=== PATIENT | male | born 1970 | race Caucasian/White ===

== ENCOUNTER 2023-03-06 22:49 | Emergency (ER) | payer SELFPAY ==
[2023-03-06 22:50] VITALS: BP 157/89; PULSE 90; RESP 18; TEMP 36.7; O2SAT 94; BMI 23.0
--- NOTE | 2023-03-06 22:55 | XRR_ITS ---
PROCEDURE INFORMATION: Exam: XR Chest Exam date and time: 03/06/2023 11:19 PM Age: 52 years old Clinical indication: Condition or disease; Other: Pnuemonia; Additional info: Pneumonia TECHNIQUE: Imaging protocol: Radiologic exam of the chest. Views: 1 view. COMPARISON: No relevant prior studies available. FINDINGS: Lungs: Unremarkable. No consolidation. Pleural spaces: Unremarkable. No pleural effusion. No pneumothorax. Heart/Mediastinum: Unremarkable. No cardiomegaly. Bones/joints: Unremarkable. XR/XR chest 1V portable [id number] IMPRESSION: No acute findings.
--- NOTE | 2023-03-06 23:08 | CTR_ITS ---
PROCEDURE INFORMATION: Exam: CT Abdomen And Pelvis With Contrast Exam date and time: 03/07/2023 12:20 AM Age: 52 years old Clinical indication: Other: Dx pneumonia; Patient HX: PT dx with pneumonia yesterday, upper abd/chest pain and swelling today; Additional info: Abd pain TECHNIQUE: Imaging protocol: Computed tomography of the abdomen and pelvis with contrast. Radiation optimization: All CT scans at this facility use at least one of these dose optimization techniques: automated exposure control; mA and/or kV adjustment per patient size (includes targeted exams where dose is matched to clinical indication); or iterative reconstruction. Contrast material: OMNI 350; Contrast volume: 100 ml; Contrast route: INTRAVENOUS (IV); REPORTING DATA: Count of CT and Cardiac NM exams in prior 12 months: This patient has received 0 known CTs and 0 known cardiac nuclear medicine studies in the 12 months prior to the current study. COMPARISON: CR (CHEST, ) 03/06/2023 11:19 PM RADIATION DOSE METRICS: Total DLP (mGy-cm): 627.43 FINDINGS: Liver: Normal. No mass. Gallbladder and bile ducts: Normal. No calcified stones. No ductal dilation. Pancreas: Normal. No ductal dilation. Spleen: The spleen is markedly enlarged measuring 22.5 cm x 20.2 cm by 9.8 cm. The markedly enlarged spleen displaces the left kidney inferiorly and medially. Adrenal glands: Normal. No mass. Kidneys and ureters: The kidneys are otherwise unremarkable. Stomach and bowel: Unremarkable. No obstruction. No mucosal thickening. Appendix: No evidence of appendicitis. Intraperitoneal space: Unremarkable. No free air. No significant fluid collection. Vasculature: Unremarkable. No abdominal aortic aneurysm. Lymph nodes: Unremarkable. No enlarged lymph nodes. Urinary bladder: Unremarkable as visualized. Reproductive: Unremarkable as visualized. Bones/joints: Unremarkable. No acute fracture. Soft tissues: The upper portions of bilateral rectus abdominis muscles are markedly enlarged and thickened measuring up to 5 cm in thickness, while the rest of the rectus abdominis muscle measures up to [address]/CT abdomen pelvis w con* [id number] IMPRESSION: 1. Advanced splenomegaly with the spleen measuring 22.5 cm x 20.2 cm by 9.8 cm. Lymphoma and myeloproliferative disease should be considered, although there are multiple other diagnoses that can cause massive splenomegaly. 2. Hypertrophied proximal portions of bilateral rectus abdominis muscle. The significance of this finding is not clear.
[2023-03-06 23:14] VITALS: RESP 18
[2023-03-06] MEDS: morphine 4 mg/mL SDV 1 mL IVP (23:14)
[2023-03-06] MEDS: ondansetron 2 mg/ML SDV 2 mL 4 MG IVP (23:14)
--- NOTE | 2023-03-06 23:18 | W.ED.ABDPA2 ---
HPI - Abdominal Pain General: Chief Complaint: Abdominal Pain Stated Complaint: Abd pain, SOB, Rib Pain Time Seen by Provider: 03/06/23 22:55 Source: patient Mode of arrival: ambulatory Limitations: no limitations History of Present Illness: 52-year-old male states over the last 5 6 days he has had cough congestion states that he has diagnosed pneumonia has been on meds states been cough and sore he started having abdominal pain states today the pain became much more severe he rates the pain a 9 out of 10 is much worse with touch had some nausea denies any diarrhea denies any fevers. Associated Symptoms: Denies chills, diarrhea, fever(s), nausea and vomiting Review of Systems Const: Denies: fever(s), chills, body aches or change in appetite ENMT: Denies: throat pain or dental pain Card: Denies: chest pain Resp: Denies: dyspnea GI: Reports: abdominal pain; Denies: nausea, vomiting or diarrhea Musc: Denies: neck pain or back pain Skin/Breast: Denies: rash Neuro: Denies: headache(s) Physical Exam Const: COMMON NORMALS: no acute distress, patient oriented x3 and healthy appearing HENMT: COMMON NORMALS: normocephalic and atraumatic HEAD & SCALP: normocephalic and atraumatic Eye: COMMON NORMALS: conjunctivae normal CONJUNCTIVA: Yes conjunctivae normal Neck/C-Spine: COMMON NORMALS: full ROM and supple Chest: COMMONS NORMALS: normal inspection of the chest Resp: COMMON NORMALS: normal respiratory effort, No retractions, No use of accessory muscles and clear to auscultation bilaterally AUSCULTATION: clear to auscultation bilaterally Cardio: COMMON NORMALS: regular rate, regular rhythm and No murmurs present (Cardio) RATE: regular rate RHYTHM: regular rhythm GI: COMMON NORMALS: Normal to inspection, nondistended, normoactive bowel sounds present, Soft to palpation and no masses PALPATION: Yes Soft to palpation and Yes Tenderness to palpation present (GI) (diffuse tenderness) Extremity: COMMON NORMALS: normal to inspection and full ROM Neuro: COMMON NORMALS: patient oriented x3, moves all extremities and no focal motor deficits Psych: COMMON NORMALS: mental status grossly normal, Normal thought process present and cooperative THOUGHT PROCESS: Normal thought process present Skin: COMMON NORMALS: no rashes or lesions noted and no wounds GENERAL SKIN EXAM: no rashes or lesions noted Course Vital Signs: Vital signs: Vital Signs Temperature 98.1 F 03/06/23 22:50 Pulse Rate 79 03/07/23 01:55 Respiratory Rate 18 03/07/23 02:32 Blood Pressure 149/95 03/07/23 01:55 Pulse Oximetry 93 03/07/23 01:55 Oxygen Delivery Me thod Room Air 03/07/23 01:55 MDM - Abdominal Pain Medical Decision Making Patient presents here with abdominal pain he is found to have an extreme leukocytosis 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 Medical Records I reviewed the patient's medical records. Lab Data I reviewed the patient's lab results. 03/07/23 00:15 03/06/23 23:06 Labs/Radiology: Radiology Impressions Chest X-Ray 03/06/23 22:55 IMPRESSION: No acute findings. Abdomen/Pelvis CT 03/06/23 23:08 IMPRESSION: 1. Advanced splenomegaly with the spleen measuring 22.5 cm x 20.2 cm by 9.8 cm. Lymphoma and myeloproliferative disease should be considered, although there are multiple other diagnoses that can cause massive splenomegaly. 2. Hypertrophied proximal portions of bilateral rectus abdominis muscle. The significance of this finding is not clear. Laboratory Results WBC 645.11 10^3/uL (3.29-11.43) H* 03/07/23 00:15 Corrected WBC 620.3 10^3/cmm (4.8-10.8) H 03/07/23 00:15 RBC 2.53 10^6/uL (3.85-5.65) L 03/07/23 00:15 Hgb 9.80 g/dL (11.27-16.99) L 03/07/23 00:15 Hct 24.1 % (37-53) L 03/07/23 00:15 MCV 95.3 fl (82-101) 03/07/23 00:15 MCH 38.7 pg (27-33) H 03/07/23 00:15 MCHC 40.7 g/dL (30-55) 03/07/23 00:15 RDW 18.6 % (12.1-15.1) H 03/07/23 00:15 Plt Count 798 10^3/cmm (157-399) H 03/07/23 00:15 MPV 10.5 fL (7.4-10.4) H 03/07/23 00:15 Gran % Cancelled 03/06/23 23:06 Neut % (Auto) Cancelled 03/06/23 23:06 Lymph % (Auto) Not Reportable 03/07/23 00:15 Centre % (Auto) Not Reportable 03/07/23 00:15 Eos % (Auto) Cancelled 03/06/23 23:06 Baso % (Auto) Cancelled 03/06/23 23:06 Neut # (Auto) Cancelled 03/06/23 23:06 Lymph # (Auto) Not Reportable 03/07/23 00:15 Centre # (Auto) Not Reportable 03/07/23 00:15 Eos # (Auto) Cancelled 03/06/23 23:06 Baso # (Auto) Cancelled 03/06/23 23:06 Absolute Gran (auto) Cancelled 03/06/23 23:06 Nucleated RBC % (auto) Cancelled 03/06/23 23:06 Total Counted 100 (0-100) 03/07/23 00:15 Atypical Lymphs % Not Reportable 03/07/23 00:15 Absolute Neutrophils 277.4 10^3/cmm (1.4-6.5) H 03/07/23 00:15 Segmented Neutrophils 40 % 03/07/23 00:15 Abs Segm Neuts (Man) 258.0 10/cmm (1.6-7.1) H 03/07/23 00:15 Band Neutrophils 3.0 % 03/07/23 00:15 Abs Band Neuts (Man) 19.4 10^3/cmm (0.0-1.2) H 03/07/23 00:15 Absolute Lymphocytes Cancelled 03/06/23 23:06 Lymphocytes (Manual) 2 % 03/07/23 00:15 Monocytes (Manual) 1.0 % 03/07/23 00:15 Absolute Monocytes 6.5 10^3/cmm (0.1-0.6) H 03/07/23 00:15 Eosinophils (Manual) 2 % 03/07/23 00:15 Absolute Eosinophils 12.9 10^3/cmm (0.0-0.7) H 03/07/23 00:15 Basophils (Manual) 0.0 % 03/07/23 00:15 Absolute Basophils 0.0 10^3/cmm (0.0-0.2) 03/07/23 00:15 Metamyelocytes 1.0 % 03/07/23 00:15 Myelocytes 35.0 % 03/07/23 00:15 Promyelocytes 7.0 % 03/07/23 00:15 Nucleated RBCs 4.0 /100WBC (0-1) H 03/07/23 00:15 Nucleated RBCs # Cancelled 03/06/23 23:06 Pathologist Review Yes 03/07/23 00:15 Hypersegmented Polys Cancelled 03/06/23 23:06 Blast Cells 5 % (0-0) H* 03/07/23 00:15 Smudge Cells 1+ H 03/07/23 00:15 Toxic Granulation Cancelled 03/06/23 23:06 Toxic Vacuolation Cancelled 03/06/23 23:06 Dohle Bodies Cancelled 03/06/23 23:06 Franklin Rods Cancelled 03/06/23 23:06 Platelet Estimate Increased (Normal) 03/07/23 00:15 Giant Platelets Cancelled 03/06/23 23:06 Polychromasia Cancelled 03/06/23 23:06 Hypochromasia Cancelled 03/06/23 23:06 Poikilocytosis Cancelled 03/06/23 23:06 Basophilic Stippling Cancelled 03/06/23 23:06 Anisocytosis Cancelled 03/06/23 23:06 Microcytosis Cancelled 03/06/23 23:06 Macrocytosis Cancelled 03/06/23 23:06 Spherocytes Cancelled 03/06/23 23:06 Sickle Cells Cancelled 03/06/23 23:06 Target Cells Cancelled 03/06/23 23:06 Tear Drop Cells Cancelled 03/06/23 23:06 Ovalocytes Cancelled 03/06/23 23:06 Stomatocytes Cancelled 03/06/23 23:06 Helmet Cells Cancelled 03/06/23 23:06 Camacho-Flaxton Bodies Cancelled 03/06/23 23:06 [place]wall Cells Cancelled 03/06/23 23:06 Crenated Cell Cancelled 03/06/23 23:06 Acanthocytes (Spur) Cancelled 03/06/23 23:06 Rouleaux Cancelled 03/06/23 23:06 Schistocytes Cancelled 03/06/23 23:06 RBC Morph Comment Cancelled 03/06/23 23:06 PT 15.80 SECONDS (12.1-14.9) H 03/07/23 00:15 INR 1.22 (0.8-1.2) H 03/07/23 00:15 APTT 42.8 SECONDS (23.9-36.7) H 03/07/23 00:15 Fibrinogen 315 mg/dL (174-498) 03/07/23 00:15 Fibrin Degrad Products ug/mL (NEG) 03/07/23 00:15 Sodium 137 mmol/L (136-145) 03/06/23 23:06 Potassium 4.1 mmol/L (3.5-5.1) 03/06/23 23:06 Chloride 98 mmol/L (98-107) 03/06/23 23:06 Carbon Dioxide 26 mmol/L (22-29) 03/06/23 23:06 Anion Gap 17.1 (5-19) 03/06/23 23:06 BUN 14 mg/dL (6-20) 03/06/23 23:06 Creatinine 1.5 mg/dL (0.7-1.2) H 03/06/23 23:06 GFR Calculation 49.1 mL/min (90-130) L 03/06/23 23:06 Glucose 114 mg/dL (65-115) 03/06/23 23:06 Calculated Osmolality 285 mOsm/kg (285-295) 03/06/23 23:06 Lactic Acid 0.8 mmol/L (0.5-2.2) 03/07/23 00:15 Uric Acid 9.1 mg/dL (3.4-7.0) H 03/07/23 00:15 Calcium 9.3 mg/dL (8.5-10.5) 03/06/23 23:06 Phosphorus 3.8 mg/dL (2.5-4.5) 03/07/23 00:15 Total Bilirubin 0.5 mg/dL (0.15-1.2) 03/06/23 23:06 AST 27 U/L (0-40) 03/06/23 23:06 ALT 30 U/L (0-41) 03/06/23 23:06 Alkaline Phosphatase 116 U/L (40-130) 03/06/23 23:06 NT-Pro-B Natriuret Pep 719 pg/mL (0-125) H 03/06/23 23:06 Total Protein 7.5 g/dL (6.6-8.7) 03/06/23 23:06 Albumin 4.2 g/dL (3.5-5.2) 03/06/23 23:06 Globulin 3.3 g/dL (1.3-4.6) 03/06/23 23:06 Lipase 17 U/L (13-60) 03/06/23 23:06 Urine Color Yellow (Yellow) 03/07/23 00:23 Urine Appearance Sl hazy (CLEAR) A 03/07/23 00:23 Urine pH 7 (5-7) 03/07/23 00:23 Ur Specific [place] 1.005 (1.005-1.030) 03/07/23 00:23 Urine Protein 1+ (Negative) H 03/07/23 00:23 Urine Glucose (UA) Norm (Normal) 03/07/23 00:23 Urine Ketones 1+ (Negative) H 03/07/23 00:23 Urine Blood Trace (Negative) H 03/07/23 00:23 Urine Nitrate Negative (Negative) 03/07/23 00:23 Urine Bilirubin Neg (Negative) 03/07/23 00:23 Urine Urobilinogen Neg mg/dL (Negative) 03/07/23 00:23 Ur Leukocyte Esterase Trace (Negative) H 03/07/23 00:23 Urine RBC 0-4 /hpf (0-2) H 03/07/23 00:23 Urine WBC 0-4 /hpf (0-5) H 03/07/23 00:23 Ur Squamous Epith Cells None /hpf (0-5) 03/07/23 00:23 Ur Transition Epith Cell 0-4 /hpf 03/07/23 00:23 Amorphous Sediment 2+ /hpf 03/07/23 00:23 Urine Bacteria 1+ /hpf (NONE) H 03/07/23 00:23 Ur Oval Fat Bodies 1+ /hpf 03/07/23 00:23 All radiology interpretation(s) finalized by discharge Critical Care Time Critical Care Time: Critical Care Time: Yes Total Critical Care Time: 40 Attestation: The high probability of a clinically significant, sudden or life threatening deterioration of the patient's hematology system(s) required my full and direct attention, intervention and personal management. The critical care time is as shown. This time is in addition to time spent performing any reported procedures but includes the following: [x] Data and vital sign review and interpretation [x] Patient assessment, examination and intervention [x] Documentation [x] Medication orders and management Discharge Plan Discharge Patient Disposition: Xfer Short-Term Hosp Clinical Impression: Abdominal pain, Leukemia Condition: Stable Patient Instructions: Abdominal Pain (ED) Coding Level of Care Code ED Barn Worker for Crystal Castillo
[2023-03-06 23:43] LABS: Alanine Aminotransferase 30 U/L (0-41); Albumin Level 4.2 g/dL (3.5-5.2); Alkaline Phosphatase 116 U/L (40-130); Anion Gap 17.1 (5-19); Aspartate Amino Transferase 27 U/L (0-40); Blood Urea Nitrogen 14 mg/dL (6-20); Calcium 9.3 mg/dL (8.5-10.5); Carbon Dioxide 26 mmol/L (22-29); Chloride 98 mmol/L (98-107); Globulin 3.3 g/dL (1.3-4.6); Glomerular Filtration Rate 49.1 mL/min (90-130); Glucose 114 mg/dL (65-115); Lipase 17 U/L (13-60); NT Pro B Type Natriuretic Pept 719 pg/mL (0-125); Osmolality Calculated 285 mOsm/kg (285-295); Potassium 4.1 mmol/L (3.5-5.1); Sodium 137 mmol/L (136-145); Total Bilirubin 0.5 mg/dL (0.15-1.2); Total Protein 7.5 g/dL (6.6-8.7)
[2023-03-06 23:48] VITALS: RESP 18
[2023-03-06] MEDS: HYDROmorphone 1 mg/mL INJ 1 mL IVP (23:48)
[2023-03-07] VITALS: BP 135/88; PULSE 85; RESP 18; O2SAT 93
[2023-03-07 00:22] LABS: Hematocrit 24.1 % (37-53); Mean Corpuscular HGB Conc 40.7 g/dL (30-55); Mean Corpuscular Hemoglobin 38.7 pg (27-33); Mean Corpuscular Volume 95.3 fl (82-101); Mean Platelet Volume 10.5 fL (7.4-10.4); Platelet Count 798 10^3/cmm (157-399); Red Blood Count 2.53 10^6/uL (3.85-5.65); Red Cell Distribution Width 18.6 % (12.1-15.1)
[2023-03-07 00:23] LABS: Slide Review Slide Review Perform
[2023-03-07 00:26] LABS: Absolute Eosinophils 12.9 10^3/cmm (0.0-0.7); Band Neutrophils Absolute 19.4 10^3/cmm (0.0-1.2); Eosinophils 2 %; Lymphocytes 2 %; Monocytes Absolute 6.5 10^3/cmm (0.1-0.6); Segmented Neutrophils 40 %; Total Cells Counted 100 (0-100)
[2023-03-07 00:27] LABS: Absolute Neutrophil 277.4 10^3/cmm (1.4-6.5); Corrected White Blood Count 620.3 10^3/cmm (4.8-10.8); Platelet Estimate Increased (Normal)
[2023-03-07 00:29] LABS: Pathology Refferal Yes; Smudge Cells 1+
[2023-03-07] MEDS: iohexol 350 mg/mL 500 mL Btl (per mL) IV (00:30)
[2023-03-07 00:32] LABS: Blastocytes 5 % (0-0)
[2023-03-07 00:39] LABS: Add Urine Microscopic? YES; Bilirubin Urine Neg (Negative); Blood Urine Trace (Negative); Glucose Urine UA Norm (Normal); Ketones Urine 1+ (Negative); Leukocyte Esterase Urine Trace (Negative); Nitrate Urine Negative (Negative); Protein Urine 1+ (Negative); Specific Gravity, Urine 1.005 (1.005-1.030); Urine Appearance SL Hazy (CLEAR); Urine Color Yellow (Yellow); Urobilinogen Urine Neg (Negative); pH Urine 7 (5-7)
[2023-03-07 00:40] LABS: Add Urine Culture? No; Amorphous Sediment Urine 2+ /hpf; Bacteria Urine 1+ /hpf; Oval Fat Bodies Urine 1+ /hpf; RBC Urine 0-4 /hpf (0-2); WBC Urine 0-4 /hpf (0-5)
[2023-03-07 00:41] LABS: Transitional Epi Cells Urine 0-4 /hpf
[2023-03-07 00:57] LABS: Lactic Sepsis W/Reflex 0.8 mmol/L (0.5-2.2)
[2023-03-07] MEDS: HYDROmorphone 1 mg/mL INJ 1 mL IVP ×2 (01:15→02:32)
[2023-03-07 01:16] VITALS: BP 156/92; PULSE 85; RESP 20; O2SAT 93
[2023-03-07 01:22] LABS: INR 1.22 (0.8-1.2)
[2023-03-07 01:23] LABS: Fibrinogen 315 mg/dL (174-498); Partial Thromboplastin Time 42.8 SECONDS (23.9-36.7)
[2023-03-07 01:25] LABS: Phosphorus 3.8 mg/dL (2.5-4.5); Uric Acid 9.1 mg/dL (3.4-7.0)
[2023-03-07] MEDS: sodium chloride 0.9% 1,000 ML 999 ML IV ×2 (01:36→02:25)
[2023-03-07 01:55] VITALS: BP 149/95; PULSE 79; RESP 16; O2SAT 93
[2023-03-07] MEDS: lidocaine 2% viscous 15 ML, aluminum-mag hydrox-simethicon 30 ML, sucralfate oral liq 1 GM PO (02:24)
[2023-03-07 02:32] VITALS: RESP 18
[2023-03-07 03:45] VITALS: BP 131/78; PULSE 85; RESP 16; O2SAT 92
--- NOTE | 2023-03-07 03:51 | PC.NURSE ---
Report called to Lizbeth Vargas RN at [facility] for room 2163 on 7A. All questions and concerns addressed at time of report.
--- NOTE | 2023-03-07 04:40 | PC.NURSE ---
Report given to EMS transferring patient. All questions and concerns addressed at bedside.
[2023-03-13 02:18] LABS: Fibrinogen Degradation Product 5 mcg/mL (LESS THAN 5)
== END 2023-03-07 04:48 | disposition short-term general hospital (02) ==
PROVIDERS: Emergency Provider Emergency Medicine
DX: C95.90 Leukemia, unspecified not having achieved remission (principal); R10.9 Unspecified abdominal pain
CPT/HCPCS: 36415; 71045; 74177; 80053; 80503; 81001; 83605; 83690; 83880; 84100; 84550; 85007; 85025; 85362; 85384; 85610; 85730; 96361; 96374; 96375; 96376; 99285; J1170; J2270; J2405; J7030; Q9967